=== PATIENT | female | born 1970 | race Caucasian/White ===

== ENCOUNTER → 2025-05-17 | Day surgery (SDC) | payer OTHER ==
[~2025-05-17] MED LIST: FENOFIBRATE145 MG PO; LABETALOL HCL 20 ML ONE; LIPITOR10 MG PO; MIDAZOLAM HCL 2 MG/2 ML VIAL ONE; NORCO PO; PANTOPRAZOLE SO40 MG PO; PROPOFOL IV EMULSION 10 MG/ML 20 ML VIAL ONE; SYNJARDY XR 101 EACH PO; TIZANIDINE HCL4 MG PO; ZESTRIL10 MG PO
[2025-05-17] MEDS: LACTATED RINGER'S 1,000 ML ONE (15:25)
[2025-05-17 16:08] VITALS: TEMP 97.6
[2025-05-17 16:30] VITALS: BP 139/87; PULSE 86; RESP 16; O2SAT 97
== END | disposition home or self-care (01) ==
LOC: OR 14:37
PROVIDERS: ATTEND Internal Medicine Gastroenterology
DX: Z12.11 Encounter for screening for malignant neoplasm of colon (principal); K31.7 Polyp of stomach and duodenum; K29.70 Gastritis, unspecified, without bleeding; K31.89 Other diseases of stomach and duodenum; K21.9 Gastro-esophageal reflux disease without esophagitis; K44.9 Diaphragmatic hernia without obstruction or gangrene; K57.30 Diverticulosis of large intestine without perforation or abscess without bleeding; K64.1 Second degree hemorrhoids; K62.5 Hemorrhage of anus and rectum; Z87.19 Personal history of other diseases of the digestive system; E11.9 Type 2 diabetes mellitus without complications; I10 Essential (primary) hypertension; E78.5 Hyperlipidemia, unspecified; E66.01 Morbid (severe) obesity due to excess calories; Z88.6 Allergy status to analgesic agent; Z88.2 Allergy status to sulfonamides; Z01.810 Encounter for preprocedural cardiovascular examination; Z79.84 Long term (current) use of oral hypoglycemic drugs; Z79.899 Other long term (current) drug therapy; Z68.41 Body mass index [BMI] 40.0-44.9, adult
CPT/HCPCS: 36415; 43239; 45378; 82948; 93005; J2250